=== PATIENT | female | born 1985 | race African-American/Black ===

== ENCOUNTER 2017-02-26 02:35 | Inpatient (IN) | payer MEDICAID ==
[~2017-02-26] VITALS: Ht 154.9 cm; Wt 64.0 kg
[2017-02-26] MEDS ORDERED: LORazepam 1 MG TABLET PO PRN (04:30)
[2017-02-26] MEDS ORDERED: QUEtiapine FUMARATE 100 MG TABLET PO PRN (04:30)
[2017-02-26] MEDS ORDERED: ZOLPIDEM TARTRATE 10 MG TABLET PO PRN (04:30)
[2017-02-26 05:45] VITALS: BP 139/90
[2017-02-26] MEDS: SERTRALINE HCL 50 MG TABLET PO SCH (08:48)
[2017-02-26] MEDS ORDERED: LEVAHFA IH (09:21)
[2017-02-26] MEDS ORDERED: QUET100T PO (09:37)
[2017-02-26] MEDS ORDERED: ZOLP10TA6 PO (09:37)
[2017-02-26] MEDS ORDERED: LORA1TAB3 PO (09:37)
[2017-02-26 16:15] VITALS: BP 103/41
[2017-02-26 16:30] VITALS: BP 108/70
[2017-02-27 03:39] VITALS: BP 112/71
[2017-02-27] MEDS: SERTRALINE HCL 50 MG TABLET PO SCH (08:22)
[2017-02-27 12:30] VITALS: BP 112/57
[2017-02-27] MEDS ORDERED: ACETAMINOPHEN 325 MG TABLET PO PRN (15:30)
[2017-02-27] MEDS ORDERED: IBUPROFEN 400 MG TABLET PO PRN (15:30)
[2017-02-27] MEDS: AMOXICILLIN TRIHYDRATE 500 MG CAPSULE PO SCH (16:42)
[2017-02-27 16:43] VITALS: BP 123/83
[2017-02-28 03:19] VITALS: BP 124/78
[2017-02-28 08:09] LABS: BASOPHILS % (AUTO) 0.6 % (0.0-2.0); EOSINOPHILS % (AUTO) 1.7 % (1.0-6.0); HEMATOCRIT 38.3 % (36-46); HEMOGLOBIN 12.4 g/dL (12.0-16.0); LYMPHOCYTES # (AUTO) 2.3 K/uL (1.0-4.8); LYMPHOCYTES % (AUTO) 30.9 % (22.0-44.0); MEAN CORPUSCULAR HEMOGLOBIN 28.1 pg (26.0-34.0); MEAN CORPUSCULAR HGB CONC 32.5 G/dL (31.0-37.0); MEAN CORPUSCULAR VOLUME 87 fL (80-100); MONOCYTES # (AUTO) 0.5 K/uL (0.1-1.0); MONOCYTES % (AUTO) 6.4 % (2.0-9.0); NEUTROPHILS # (AUTO) 4.6 K/uL (1.8-7.7); NEUTROPHILS % (AUTO) 60.4 % (40.0-70.0); PLATELET COUNT (AUTO) 293 K/uL (150-450); RED BLOOD CELL COUNT(AUTO) 4.42 MIL/uL (4.00-5.20); RED CELL DISTRIBUTION WIDTH 14.9 % (11.5-14.5); WHITE BLOOD COUNT (AUTO) 7.6 K/uL (4.5-11.0)
[2017-02-28] MEDS: SERTRALINE HCL 50 MG TABLET PO SCH (08:12)
[2017-02-28] MEDS: AMOXICILLIN TRIHYDRATE 500 MG CAPSULE PO SCH ×3 (08:12→16:36)
[2017-02-28 08:16] LABS: HEMOGLOBIN A1C 5.5 % (4.5-6.2)
[2017-02-28 08:35] VITALS: BP 109/72
[2017-02-28 08:44] LABS: ALANINE AMINOTRANSFERASE 16 U/L (12-78); ALBUMIN 3.4 g/dL (3.4-5.0); ANION GAP 7 mmol/L (8-16); ASPARTATE AMINOTRANSFERASE 14 U/L (15-37); BILIRUBIN,TOTAL 0.3 mg/dL (0.1-1.0); CALCIUM, TOTAL 8.6 mg/dL (8.8-10.5); CARBON DIOXIDE 30 mmol/L (22-29); CHLORIDE 108 mmol/L (98-107); CHOL/HDL RATIO 4.6 (3.9-5.7); CREATININE 0.68 mg/dL (0.60-1.30); GLOMERULAR FILTR. RATE CALC > 60 mL/min (>60); POTASSIUM 3.5 mmol/L (3.5-5.1); SODIUM SERUM 145 mmol/L (136-145); THYROID STIMULATING HORMONE 0.37 uIU/mL (0.36-3.74); TOTAL PROTEIN, SERUM 6.7 g/dL (6.4-8.2); UREA NITROGEN, BLOOD 9 mg/dL (7-18)
[2017-02-28] MEDS: CAMPHOR/MENTHOL/PHENOL 10 GM OINTMENT TP PRN (14:32)
[2017-02-28 14:33] VITALS: BP 110/70
[2017-02-28 16:13] VITALS: BP 114/72
[2017-03-01 06:10] VITALS: BP 105/65
[2017-03-01 08:35] VITALS: BP 120/64
[2017-03-01] MEDS: SERTRALINE HCL 50 MG TABLET PO SCH (08:45)
[2017-03-01] MEDS: AMOXICILLIN TRIHYDRATE 500 MG CAPSULE PO SCH ×3 (08:45→16:35)
[2017-03-01 16:00] VITALS: BP 120/78
[2017-03-01] MEDS: CAMPHOR/MENTHOL/PHENOL 10 GM OINTMENT TP PRN (17:23)
== END 2017-03-01 19:20 | disposition left against medical advice (07) | DRG 751 ==
LOC: B3A 04:38 → EDSTATUS 05:03 → B3A 03-01 16:17
DX: F33.2 Major depressive disorder, recurrent severe without psychotic features (principal); F15.10 Other stimulant abuse, uncomplicated; L03.811 Cellulitis of head [any part, except face]; J45.909 Unspecified asthma, uncomplicated; F43.10 Post-traumatic stress disorder, unspecified; S00.83XA Contusion of other part of head, initial encounter; X58.XXXA Exposure to other specified factors, initial encounter; Z59.0 Homelessness; Z98.890 Other specified postprocedural states; Z79.51 Long term (current) use of inhaled steroids; Z79.899 Other long term (current) drug therapy; Z88.8 Allergy status to other drugs, medicaments and biological substances; Z71.51 Drug abuse counseling and surveillance of drug abuser; Z91.041 Radiographic dye allergy status; Z91.030 Bee allergy status; Y93.89 Activity, other specified; Y92.89 Other specified places as the place of occurrence of the external cause; Y99.8 Other external cause status
CPT/HCPCS: 83036; 84443

== ENCOUNTER 2017-02-26 09:16 | Emergency (ER) | payer MEDICAID, OTHER ==
[~2017-02-26] VITALS: Ht 154.9 cm; Wt 64.1 kg
[2017-02-26] MEDS ORDERED: LEVAHFA IH (09:21)
[2017-02-26 09:23] VITALS: BP 123/68
[2017-02-26] MEDS ORDERED: LORA1TAB3 PO (09:37)
[2017-02-26] MEDS ORDERED: QUET100T PO (09:37)
[2017-02-26] MEDS ORDERED: ZOLP10TA6 PO (09:37)
[2017-02-26] MEDS ORDERED: CefTRIAXone SODIUM 1 GM/VIAL IM ONE (10:30)
[2017-02-26] MEDS ORDERED: LIDOCAINE HCL/PF 1% 2 ML VIAL IM ONE (10:30)
[2017-02-26] MEDS ORDERED: DiphenhydrAMINE HCL 25 MG CAPSULE PO ONE (10:30)
== END 2017-02-26 11:35 | disposition home or self-care (01) ==
LOC: EMS 09:18
DX: S00.81XA Abrasion of other part of head, initial encounter (principal); L03.211 Cellulitis of face; J45.909 Unspecified asthma, uncomplicated; F15.90 Other stimulant use, unspecified, uncomplicated; Z88.8 Allergy status to other drugs, medicaments and biological substances; W57.XXXA Bitten or stung by nonvenomous insect and other nonvenomous arthropods, initial encounter; Y93.89 Activity, other specified; Y92.89 Other specified places as the place of occurrence of the external cause; Y99.8 Other external cause status
CPT/HCPCS: 96372; 99284; J0696; J3490